=== PATIENT | male | born 1980 | race Caucasian/White ===

== ENCOUNTER 2017-12-03 07:12 | Emergency (ER) | payer BC, OTHER ==
[2017-12-03 07:30] VITALS: BP 133/95
--- NOTE | 2017-12-03 08:03 | UC ---
Skin Complaint HPI - HPI Summary HPI Summary: 37 yo male presents with changing mole to the left cheek. He tells me that all his life he has had a dark flat mole here, but over the last 2 weeks has been changing to a flesh color and is bleeding when touched. Also growing in size. Denies fever, chills, or prolonged sun exposure/tanning. No personal hx or fam hx of melanoma - History of Current Complaint Chief Complaint: UCSkin Time Seen by Provider: 12/03/17 08:03 Stated Complaint: MOLE ON FACE Hx Obtained From: Patient Onset/Duration: Gradual Onset Current Severity: None Pain Intensity: 0 - Allergy/Home Medications Allergies/Adverse Reactions: Allergies Allergy/AdvReac Type Severity Reaction Status Date / Time No Known Allergies Allergy Verified 12/03/17 07:30 Home Medications: Home Medications Aspirin TAB* [Aspirin 325 MG TAB*] 325 mg PO DAILY PRN 12/03/17 [History Confirmed 12/03/17] Review of Systems Constitutional: Negative Skin: Other - changing mole ENT: Negative Respiratory: Negative Cardiovascular: Negative Gastrointestinal: Negative Neurovascular: Negative Neurological: Negative Psychological: Negative All Other Systems Reviewed And Are Negative: Yes PMH/Surg Hx/FS Hx/Imm Hx - Additional Past Medical History Additional PMH: None Previously Healthy: Yes Other History Of: Negative For: HIV, Hepatitis B, Hepatitis C - Surgical History Surgical History: None Surgery Procedure, Year, and Place: DENIES - Family History Known Family History: Negative: Renal Disease, Blood Disorder - Social History Occupation: Employed Full-time Lives: With Family Alcohol Use: Occasionally Substance Use Type: None Smoking Status (MU): Former Smoker Have You Smoked in the Last Year: Yes When Did the Patient Quit Smoking/Using Tobacco: 2014 - Immunization History Most Recent Influenza Vaccination: never Most Recent Tetanus Shot: UTD Physical Exam - Summary Physical Exam Summary: GENERAL: NAD. WDWN. No pain distress. SKIN: Left cheek: 3mm flesh colored growth raised 2mm. Appears symmetric. NTTP. No streaking, bleeding, or drainage. NECK: Supple. Nontender. No lymphadenopathy. CHEST: No accessory muscle use. Breathing comfortably and in no distress. CV: RRR. Without m/r/g. NEURO: Alert. CN II-XII grossly intact. PSYCH: Age appropriate behavior. Triage Information Reviewed: Yes Vital Signs: Initial Vital Signs Temp 97.3 F 05/21/18 07:26 Pulse 70 12/03/17 07:26 Resp 16 12/03/17 07:26 BP 133/95 12/03/17 07:26 Pulse Ox 96 12/03/17 07:26 Course/Dx - Course Course Of Treatment: Changing mole - refer to derm for further eval - Diagnoses Provider Diagnoses: Changing mole Discharge - Sign-Out/Discharge Documenting (check all that apply): Discharge/Admit/Transfer - Discharge Plan Condition: Stable Disposition: HOME Patient Education Materials: Atypical Mole (ED) Referrals: No Primary Care Phys,NOPCP [Primary Care Provider] - Arminda Aguiar MD [Medical Doctor] - As Soon As Possible Additional Instructions: If you develop a fever, shortness of breath, chest pain, new or worsening symptoms - please call your PCP or go to the ED. Your blood pressure was high at todays visit. Please see your primary provider within 4 weeks for recheck and re-evaluation. 1) Please schedule a follow up appointment with dermatology as soon as possible - Billing Disposition and Condition Condition: STABLE Disposition: HOME
== END 2017-12-03 08:20 | disposition home or self-care (01) ==
LOC: UCEAST 07:12
DX: D22.39 Melanocytic nevi of other parts of face (principal); Z87.891 Personal history of nicotine dependence
CPT/HCPCS: 99211; G0463

== ENCOUNTER 2018-09-17 14:10 | Emergency (ER) | payer BC ==
[2018-09-17 14:18] VITALS: BP 145/97
--- NOTE | 2018-09-17 14:34 | ED ---
Abdominal Pain/Male - HPI Summary HPI Summary: 38 yr old male with the complaint of epigastric pain, mostly sub xiphoid area and also some RUQ pain. Onset while standing in line to get on a plane today, and he also had dizziness, and diaphoresis. He denies SOB, palpitations. He felt ill enough not to get on the airplane and he came here for further evaluation. He has no other complaints. - History of Current Complaint Chief Complaint: UCAbdominalPain Stated Complaint: ABD PAIN Time Seen by Provider: 09/17/18 14:20 Pain Intensity: 4 - Allergies/Home Medications Allergies/Adverse Reactions: Allergies Allergy/AdvReac Type Severity Reaction Status Date / Time No Known Allergies Allergy Verified 09/17/18 14:18 Home Medications: Home Medications NK [No Home Medications Reported] 09/17/18 [History Confirmed 09/17/18] PMH/Surg Hx/FS Hx/Imm Hx Endocrine/Hematology History: Denies: Hx Diabetes, Hx Thyroid Disease Cardiovascular History: Denies: Hx Congestive Heart Failure, Hx Deep Vein Thrombosis, Hx Hypertension , Hx Myocardial Infarction, Hx Pacemaker/ICD Respiratory History: Denies: Hx Asthma, Hx Chronic Obstructive Pulmonary Disease (COPD), Hx Lung Cancer, Hx Pneumonia, Hx Pulmonary Embolism GI History: Denies: Hx Gall Bladder Disease, Hx Gastrointestinal Bleed, Hx Ulcer, Hx Urosepsis History: Denies: Hx Kidney Stones, Hx Renal Disease Sensory History: Denies: Hx Hearing Aid Neurological History: Denies: Hx Dementia, Hx Migraine, Hx Seizures, Hx Transient Ischemic Attacks (TIA) Psychiatric History: Reports: Hx Anxiety Denies: Hx Panic Disorder - Surgical History Surgery Procedure, Year, and Place: DENIES Infectious Disease History: No Infectious Disease History: Denies: Hx Clostridium Difficile, Hx Hepatitis, Hx Human Immunodeficiency Virus (HIV), Hx of Known/Suspected MRSA, Hx Shingles, Hx Tuberculosis, Hx Known/ Suspected VRE, Hx Known/Suspected VRSA, History Other Infectious Disease, Traveled Outside the [place] in Last 30 Days - Family History Known Family History: Positive: None Negative: Renal Disease, Blood Disorder Family History: NON CONTRIBUTORY - Social History Occupation: Employed Full-time Alcohol Use: Occasionally Substance Use Type: Reports: None Smoking Status (MU): Former Smoker Have You Smoked in the Last Year: Yes Review of Systems Constitutional: Negative Positive: Abdominal Pain All Other Systems Reviewed And Are Negative: Yes Physical Exam Triage Information Reviewed: Yes Vital Signs On Initial Exam: Initial Vitals Temp Pulse Resp BP Pulse Ox 98 F 83 18 145/97 100 09/17/18 14:15 09/17/18 14:15 09/17/18 14:15 09/17/18 14:15 09/17/18 14:15 Vital Signs Reviewed: Yes Appearance: Positive: Well-Appearing, No Pain Distress Skin: Positive: Warm, Skin Color Reflects Adequate Perfusion Head/Face: Positive: Normal Head/Face Inspection Eyes: Positive: EOMI, TAMIKA ENT: Positive: Normal ENT inspection Neck: Positive: Supple, Nontender Respiratory/Lung Sounds: Positive: Clear to Auscultation, Breath Sounds Present Cardiovascular: Positive: RRR. Negative: Murmur Abdomen Description: Positive: Nontender Musculoskeletal: Positive: Strength/ROM Intact Neurological: Positive: Sensory/Motor Intact, Alert, Oriented to Person Place, Time, CN Intact II-III, Speech Normal Psychiatric: Positive: Normal - [place] Coma Scale Best Eye Response: 4 - Spontaneous Best Motor Response: 6 - Obeys Commands Best Verbal Response: 5 - Oriented Coma Scale Total: 15 Diagnostics - Vital Signs Vital Signs Temp Pulse Resp BP Pulse Ox 09/17/18 14:15 98 F 83 18 145/97 100 - Laboratory Lab Statement: Any lab studies that have been ordered have been reviewed, and results considered in the medical decision making process. - EKG 09/17/18 Cardiac Rate: NL EKG Rhythm: Sinus Rhythm ST Segment: Normal Ectopy: None - no stemi Abdominal Pain Male Course/Dx - Course Course Of Treatment: 38 yr old with high epigastric pain, dizziness and light headedness. Signed out AMA. Advised to go by ambulance to ER for further work up. Declined ambulance. He states his girlfriend is driving him to the ER. - Diagnoses Provider Diagnoses: Epigastric abdominal pain, Elevated blood pressure reading Discharge - Sign-Out/Discharge Documenting (check all that apply): Patient Departure All imaging exams completed and their final reports reviewed: No Studies - Discharge Plan Condition: Good Disposition: AGAINST MEDICAL ADVICE Referrals: No Primary Care Phys,NOPCP [Primary Care Provider] - - Billing Disposition and Condition Condition: GOOD Disposition: Against Medical Advice
== END 2018-09-17 14:40 | disposition left against medical advice (07) ==
LOC: UCEAST 14:10
DX: R10.13 Epigastric pain (principal); Z87.891 Personal history of nicotine dependence; R30.0 Dysuria
CPT/HCPCS: 93005; 99212; G0463

== ENCOUNTER 2018-09-17 15:09 | Emergency (ER) | payer BC ==
[2018-09-17] MEDS ORDERED: Famotidine TAB* 20 MG PO ONE (15:42)
[2018-09-17] MEDS ORDERED: Al Hydrox/Mg Hydrox/Simet LIQ* 30 ML UDC PO ONE (15:42)
[2018-09-17 15:57] LABS: ABS Basophils 0 10^3/ul (0-0.2); ABS Eosinophils 0.2 10^3/ul (0-0.6); ABS Lymphocytes 1.9 10^3/ul (1.0-4.8); ABS Monocytes 0.8 10^3/ul (0-0.8); ABS Neutrophils 4.2 10^3/ul (1.5-7.7); ABS Nucleated RBC 0 10^3/ul; Eosinophil % 2.2 %; Hematocrit 47 % (42-52); Hemoglobin 16.2 g/dl (14.0-18.0); Lymphocyte % 26.7 %; Mean Corpuscular HGB Conc 35 g/dl (31-36); Mean Corpuscular Hemoglobin 31 pg (27-31); Mean Corpuscular Volume 90 fL (80-94); Mean Platelet Volume 7.8 fL (7.4-10.4); Nucleated Red Blood Cells % 0.1; Platelet Count 243 10^3/ul (150-450); Red Blood Count 5.22 10^6/ul (4.00-5.40); Red Cell Distribution Width 13 % (10.5-15); White Blood Count 7.1 10^3/ul (3.5-10.8)
[2018-09-17 16:20] LABS: Albumin 4.8 g/dL (3.2-5.2); Albumin/Globulin Ratio 1.6 (1-3); BUN/Creatinine Ratio 14.2 (8-20); Calcium 9.9 mg/dL (8.6-10.3); EGFR African American 82.4 (>60); EGFR Non-African American 68.1 (>60); Magnesium 2.1 mg/dL (1.9-2.7); Potassium 4.6 mmol/L (3.5-5.0); Total Bilirubin 0.9 mg/dL (0.2-1.0); Total Protein 7.8 g/dL (6.4-8.9)
[2018-09-17 16:39] VITALS: BP 132/87
--- NOTE | 2018-09-18 07:31 | ED ---
HPI Chest Pain - HPI Summary HPI Summary: patient is a 38-year-old male who presents to the ED with epigastric pain 2-3 days. Patient denies SOB. He was seen at urgent care who sent him here for further evaluation. He arrives appearing anxious overcoming to the ED. He has never had cardiac pathologies in the past. Denies any family history of such. He takes no medications. Patient is a some day smoker, however quit as an every day smoker several years ago. Endorses occasional alcohol use. He endorses symptoms of epigastric tenderness which is nonradiating. Not worse or better with positioning. He continues to eat and drink okay. Symptoms are not worse with exertion or better with rest. He has not tried anything over-the- counter for relief. He's never been diagnosed with GERD. - History of Current Complaint Chief Complaint: EDChestPainROMI Time Seen by Provider: 09/17/18 15:35 Hx Obtained From: Patient Onset/Duration: Started Days Ago Timing: Intermittent Initial Severity: Moderate Current Severity: None Pain Intensity: 1 Pain Scale Used: 0-10 Numeric Chest Pain Location: Mid Sternal Chest Pain Radiates: No Character: Dull/Aching Aggravating Factor(s): Nothing Alleviating Factor(s): Nothing Associated Signs and Symptoms: Positive: Negative - Risk Factors Pulmonary Embolism Risk Factors: Negative TAD Risk Factors: Negative - Allergy/Home Medications Allergies/Adverse Reactions: Allergies Allergy/AdvReac Type Severity Reaction Status Date / Time No Known Allergies Allergy Verified 09/17/18 14:18 PMH/Surg Hx/FS Hx/Imm Hx Previously Healthy: Yes Endocrine/Hematology History: Denies: Hx Diabetes, Hx Thyroid Disease Cardiovascular History: Denies: Hx Congestive Heart Failure, Hx Deep Vein Thrombosis, Hx Hypertension , Hx Myocardial Infarction, Hx Pacemaker/ICD Respiratory History: Denies: Hx Asthma, Hx Chronic Obstructive Pulmonary Disease (COPD), Hx Lung Cancer, Hx Pneumonia, Hx Pulmonary Embolism GI History: Denies: Hx Gall Bladder Disease, Hx Gastrointestinal Bleed, Hx Ulcer, Hx Urosepsis History: Denies: Hx Kidney Stones, Hx Renal Disease Sensory History: Denies: Hx Hearing Aid Neurological History: Denies: Hx Dementia, Hx Migraine, Hx Seizures, Hx Transient Ischemic Attacks (TIA) Psychiatric History: Reports: Hx Anxiety Denies: Hx Panic Disorder - Surgical History Surgery Procedure, Year, and Place: DENIES - Immunization History Hx Pertussis Vaccination: No Immunizations Up to Date: Yes Infectious Disease History: No Infectious Disease History: Denies: Hx Clostridium Difficile, Hx Hepatitis, Hx Human Immunodeficiency Virus (HIV), Hx of Known/Suspected MRSA, Hx Shingles, Hx Tuberculosis, Hx Known/ Suspected VRE, Hx Known/Suspected VRSA, History Other Infectious Disease, Traveled Outside the [place] in Last 30 Days - Family History Known Family History: Positive: None Negative: Renal Disease, Blood Disorder Family History: NON CONTRIBUTORY - Social History Occupation: Employed Full-time Lives: With Family Alcohol Use: Occasionally Hx Substance Use: No Substance Use Type: Reports: None Smoking Status (MU): Former Smoker Have You Smoked in the Last Year: Yes Review of Systems Negative: Fever, Chills, Fatigue, Skin Diaphoresis Negative: Blurred Vision Negative: Dental Pain, Sore Throat Positive: Chest Pain Negative: Shortness Of Breath, Cough Genitourinary: Negative Positive: no symptoms reported, see HPI Skin: Negative Neurological: Negative All Other Systems Reviewed And Are Negative: Yes Physical Exam Triage Information Reviewed: Yes Vital Signs On Initial Exam: Initial Vitals Temp Pulse Resp BP Pulse Ox 97.4 F 71 18 158/103 98 09/17/18 15:14 09/17/18 15:14 09/17/18 15:14 09/17/18 15:14 09/17/18 15:14 Vital Signs Reviewed: Yes Appearance: Positive: Well-Appearing, Well-Nourished Skin: Positive: Warm, Skin Color Reflects Adequate Perfusion Head/Face: Positive: Normal Head/Face Inspection Eyes: Positive: EOMI, TAMIKA, Conjunctiva Clear Neck: Positive: Supple, No Lymphadenopathy Respiratory/Lung Sounds: Positive: Clear to Auscultation, Breath Sounds Present Cardiovascular: Positive: RRR, Pulses are Symmetrical in both Upper and Lower Extremities, S1, S2. Negative: Leg Edema Left, Leg Edema Right Musculoskeletal: Positive: Normal, Strength/ROM Intact Neurological: Positive: Speech Normal Psychiatric: Positive: Anxious AVPU Assessment: Alert Diagnostics - Vital Signs Vital Signs Temp Pulse Resp BP Pulse Ox 09/17/18 16:42 98.2 F 70 18 132/87 95 09/17/18 16:09 70 18 132/87 95 09/17/18 16:01 69 18 98 09/17/18 15:42 9 09/17/18 15:39 162/103 09/17/18 15:14 97.4 F 71 18 158/103 98 - Laboratory Lab Results: Lab Results 09/17/18 09/17/18 09/17/18 Range/Units 15:50 15:50 15:50 WBC 7.1 (3.5-10.8) 10^3/ul RBC 5.22 (4.00-5.40) 10^6/ul Hgb 16.2 (14.0-18.0) g/dl Hct 47 (42-52) % MCV 90 (80-94) fL MCH 31 (27-31) pg MCHC 35 (31-36) g/dl RDW 13 (10.5-15) % Plt Count 243 (150-450) 10^3/ul MPV 7.8 (7.4-10.4) fL Neut % (Auto) 58.9 % Lymph % (Auto) 26.7 % [place] % (Auto) 11.6 % Eos % (Auto) 2.2 % Baso % (Auto) 0.6 % Absolute Neuts (auto) 4.2 (1.5-7.7) 10^3/ul Absolute Lymphs (auto) 1.9 (1.0-4.8) 10^3/ul Absolute Monos (auto) 0.8 (0-0.8) 10^3/ul Absolute Eos (auto) 0.2 (0-0.6) 10^3/ul Absolute Basos (auto) 0 (0-0.2) 10^3/ul Absolute Nucleated RBC 0 10^3/ul Nucleated RBC % 0.1 Sodium 138 (135-145) mmol/L Potassium 4.6 (3.5-5.0) mmol/L Chloride 100 L (101-111) mmol/L Carbon Dioxide 28 (22-32) mmol/L Anion Gap 10 (2-11) mmol/L BUN 17 (6-24) mg/dL Creatinine 1.20 H (0.67-1.17) mg/dL Est GFR ( Amer) 82.4 (>60) Est GFR (Non-Af Amer) 68.1 (>60) BUN/Creatinine Ratio 14.2 (8-20) Glucose 107 H (70-100) mg/dL Lactic Acid 2.2 H* (0.5-2.0) mmol/L Calcium 9.9 (8.6-10.3) mg/dL Magnesium 2.1 (1.9-2.7) mg/dL Total Bilirubin 0.90 (0.2-1.0) mg/dL AST 28 (13-39) U/L ALT 62 H (7-52) U/L Alkaline Phosphatase 81 (34-104) U/L Troponin I 0.00 (<0.04) ng/mL Total Protein 7.8 (6.4-8.9) g/dL Albumin 4.8 (3.2-5.2) g/dL Globulin 3.0 (2-4) g/dL Albumin/Globulin Ratio 1.6 (1-3) Result Diagrams: 09/17/18 15:50 09/17/18 15:50 Lab Statement: Any lab studies that have been ordered have been reviewed, and results considered in the medical decision making process. Chest Pain Course/Dx - Course Course Of Treatment: During the course of treatment, the patient is worked up for chest pain. He endorses epigastric chest pain which is nonradiating. Denies any abdominal pain otherwise. On physical examination, lungs CTA, RRR. Vital signs are stable. Patient appears well and nondiaphoretic. No shortness of breath is noted. On physical examination, palpation in all 4 quadrants without tenderness. He is given famotidine and Maalox in the ED with good improvement. EKG shows normal sinus rhythm. Lactic 2.2. Troponin 0.00. Discussed treatment options with patient. I've given him a referral to [facility] for further follow-up. He'll be diagnosed with atypical chest pain. Unsure if this is gastritis versus other atypical chest pain. As troponin 0.00, he has no history or family history patient is otherwise low risk for ACS, I do not believe he needs to be admitted at this time. He will follow-up with a new PCP. - Chest Pain Differential Diagnosis/HQI/PQRI: ACS, Chest Wall - Diagnoses Provider Diagnoses: Atypical chest pain Discharge - Sign-Out/Discharge Documenting (check all that apply): Patient Departure Patient Received Moderate/Deep Sedation with Procedure: No - Discharge Plan Condition: Stable Disposition: HOME Patient Education Materials: Chest Pain (ED) Referrals: [facility] [Outside] No Primary Care Phys,NOPCP [Primary Care Provider] - Additional Instructions: Please follow up with [facility]CP [facility] If symptoms worsen - return to the ED - Billing Disposition and Condition Condition: STABLE Disposition: Home
== END 2018-09-17 16:42 | disposition home or self-care (01) ==
LOC: ED 15:09
DX: R07.89 Other chest pain (principal); R10.13 Epigastric pain; F41.9 Anxiety disorder, unspecified; Z72.0 Tobacco use
CPT/HCPCS: 36415; 71046; 80053; 83605; 83735; 84484; 85025; 93005; 99283; A9270-GY

== ENCOUNTER 2019-06-16 21:00 | Emergency (ER) | payer BC, OTHER ==
[2019-06-16 21:14] VITALS: BP 146/92
--- NOTE | 2019-06-16 22:01 | UC ---
Elbow Pain - HPI Summary HPI Summary: 38 year old male presents with onset of progressively worsening redness, swelling, and pain to his posterior left elbow since yesterday. No known injury. States pain is a constant throbbing that increases with full extension of the elbow. Denies fever, chills, lesions, decreased ROM, numbness or tingling. - History of Current Complaint Chief Complaint: UCUpperExtremity Stated Complaint: ELBOW PAIN Time Seen by Provider: 06/16/19 21:37 Hx Obtained From: Patient Pain Intensity: 7 - Allergies/Home Medications Allergies/Adverse Reactions: Allergies Allergy/AdvReac Type Severity Reaction Status Date / Time No Known Allergies Allergy Verified 06/16/19 21:14 Home Medications: Home Medications Ibuprofen TAB* [Motrin TAB* 400 MG] 400 mg PO Q6H PRN 06/16/19 [History Confirmed 06/16/19] PMH/Surg Hx/FS Hx/Imm Hx Previously Healthy: Yes - Denies significant PMH Other History Of: Negative For: HIV, Hepatitis B, Hepatitis C - Surgical History Surgical History: None Surgery Procedure, Year, and Place: DENIES - Family History Known Family History: Positive: Non-Contributory Family History: NON CONTRIBUTORY - Social History Occupation: Employed Full-time Lives: Alone Alcohol Use: Weekly Substance Use Type: None Smoking Status (MU): Former Smoker Have You Smoked in the Last Year: Yes When Did the Patient Quit Smoking/Using Tobacco: 2014 - Immunization History Most Recent Influenza Vaccination: never Most Recent Tetanus Shot: UTD Review of Systems All Other Systems Reviewed And Are Negative: Yes Constitutional: Negative: Fever, Chills Skin: Negative: Rash, Other - Lesions Respiratory: Positive: Negative Cardiovascular: Positive: Negative Gastrointestinal: Positive: Negative Genitourinary: Positive: Negative Motor: Negative: Weakness Neurovascular: Negative: Decreased Sensation Musculoskeletal: Positive: Other: - See HPI Neurological: Positive: Negative Is Patient Immunocompromised?: No Physical Exam - Summary Physical Exam Summary: GENERAL APPEARANCE: Well developed, well nourished, alert and cooperative, and appears to be in no acute distress. CARDIAC: Normal S1 and S2. No S3, S4 or murmurs. Rhythm is regular. There is no peripheral edema, cyanosis or pallor. Extremities are warm and well perfused. Capillary refill is less than 2 seconds. Peripheral pulses intact. LUNGS: Clear to auscultation without rales, rhonchi, wheezing or diminished breath sounds. ABDOMEN: Positive bowel sounds. Soft, nondistended, nontender. No guarding or rebound. No masses or hepatosplenomegally. MUSKULOSKELETAL: Normal muscular development. Normal gait. EXTREMITIES: Tenderness, erythema and edema to the posterior left elbow over the olecranon bursa with increased warmth. No lesions. Circulation and sensation intact. SKIN: Skin normal color, texture and turgor with no lesions or eruptions. Triage Information Reviewed: Yes Vital Signs: Initial Vital Signs Temp 98.3 F 06/16/19 21: Pulse 96 06/16/19 21: Resp 16 06/16/19 21: BP 146/92 06/16/19: Pulse Ox 99 06/16/19: Vital Signs Reviewed: Yes Elbow Pain Course/Dx - Course Course Of Treatment: 38 year old male presents with onset of progressively worsening redness, swelling, and pain to his posterior left elbow since yesterday. No known injury. States pain is a constant throbbing that increases with full extension of the elbow. Denies fever, chills, lesions, decreased ROM, numbness or tingling. Afebrile. Hypertensive otherwise VSS. Patient had tenderness, erythema and edema to the posterior left elbow over the olecranon bursa with increased warmth, no lesions, with circulation and sensation intact. Discussed with patient that based on his exam he clinically has an olecranon bursitis that is unlikely to be of infectious origin without injury or fever. Recommending conservative treatment including NSAIDs and RICE. He was placed in an ROMI wrap by the RN. He is to follow up with orthopedic surgery in 5-7 days if symptoms do not improve. Anticipatory guidance and warning symptoms reviewed with patient. Verbalizes understanding and agrees with POC. - Differential Dx/Diagnosis Differential Diagnosis/HQI/PQRI: Bursitis, Cellulitis, Joint Effusion, Sprain, Tendonitis Provider Diagnosis: Olecranon bursitis of left elbow Discharge ED - Sign-Out/Discharge Documenting (check all that apply): Patient Departure All imaging exams completed and their final reports reviewed: No Studies - Discharge Plan Condition: Stable Disposition: HOME Patient Education Materials: Elbow Bursitis (ED) Referrals: [facility] [Outside] Michael Garcia MD [Medical Doctor] - 5 Days (If no improvement. Call for appointment.) No Primary Care Phys,NOPCP [Primary Care Provider] - Additional Instructions: You have a condition called olecranon bursititis which is inflammation of the fluid sac of the elbow. Rest the elbow as much as possible. Apply ice to the affected area for 15-20 minutes at least 4 times a day to help with the pain and swelling. Use the ROMI wrap that was applied to help reduce swelling. Take ibuprofen (Advil, Motrin) 600 mg (3 tabs) every 8 hours or naproxen (Aleve ) 440 mg (2 tabs) every 12 hours for the next 5 days then as needed for pain. Follow up with your orthopedic surgery in 5-7 days if symptoms do not improve. Seek immediate medical attention if you develop fever greater than 100.5 F, have severe pain not managed with pain medication, you lose function of the arm/ elbow, develop numbness or tingling in the arm, hand, or legs, or have any worsening of symptoms. - Billing Disposition and Condition Condition: STABLE Disposition: Home
== END 2019-06-16 22:20 | disposition home or self-care (01) ==
LOC: UCEAST 21:00
DX: M70.22 Olecranon bursitis, left elbow (principal); Z87.891 Personal history of nicotine dependence
CPT/HCPCS: 99212; G0463

== ENCOUNTER 2019-09-06 16:22 | Emergency (ER) | payer BC ==
--- NOTE | 2019-09-06 16:58 | UC ---
Throat Pain/Nasal Jorge HPI - HPI Summary HPI Summary: Laryngitis, cough headaches for about 1 week--patient very frustrated this is not better - History of Current Complaint Chief Complaint: UCRespiratory Stated Complaint: SORE THROAT Time Seen by Provider: 09/06/19 16:24 Hx Obtained From: Patient Onset/Duration: Gradual Onset, Lasting Days - 7, Still Present Pain Intensity: 6 Pain Scale Used: 0-10 Numeric Cough: Sputum Appears - green Associated Signs & Symptoms: Positive: Hoarseness - Allergies/Home Medications Allergies/Adverse Reactions: Allergies Allergy/AdvReac Type Severity Reaction Status Date / Time No Known Allergies Allergy Verified 09/06/19 16:34 Home Medications: Home Medications Aspirin TAB* [Aspirin 325 MG TAB*] 650 mg PO Q6HR 09/06/19 [History Confirmed ] Azithromycin TAB* [Zithromax TAB (Z-ROSHAN) 250 mg #6 tabs] 2 tab PO .TODAY, THEN 1 DAILY #1 roshan 09/06/19 [Rx] PMH/Surg Hx/FS Hx/Imm Hx Previously Healthy: Yes Other History Of: Negative For: HIV, Hepatitis B, Hepatitis C - Surgical History Surgical History: None Surgery Procedure, Year, and Place: DENIES - Family History Known Family History: Positive: Non-Contributory Family History: NON CONTRIBUTORY - Social History Occupation: Employed Full-time Lives: With Family Alcohol Use: Weekly Alcohol Amount: weekends Substance Use Type: None Smoking Status (MU): Former Smoker Have You Smoked in the Last Year: Yes When Did the Patient Quit Smoking/Using Tobacco: 2014 - Immunization History Most Recent Influenza Vaccination: never Most Recent Tetanus Shot: UTD Review of Systems All Other Systems Reviewed And Are Negative: Yes Constitutional: Positive: Fatigue Skin: Positive: Negative Eyes: Positive: Negative ENT: Positive: Sore Throat Respiratory: Positive: Cough Cardiovascular: Positive: Negative Gastrointestinal: Positive: Negative Genitourinary: Positive: Negative Motor: Positive: Negative Neurovascular: Positive: Negative Musculoskeletal: Positive: Negative Neurological/Mental Status: Positive: Negative Psychological: Positive: Negative Is Patient Immunocompromised?: No Physical Exam Triage Information Reviewed: Yes Appearance: Well-Appearing, No Pain Distress, Well-Nourished Vital Signs: Initial Vital Signs Temp 98.1 F 09/06/19 16:29 Pulse 88 09/06/19 16:29 Resp 16 09/06/19 16:29 BP 145/101 09/06/19 16:29 Pulse Ox 99 09/06/19 16:29 Vital Signs Reviewed: Yes Eye Exam: Normal Eyes: Positive: Conjunctiva Clear ENT Exam: Normal ENT: Positive: Normal ENT inspection, Hearing grossly normal, Pharynx normal, TMs normal, Hoarse voice, Uvula midline. Negative: Nasal congestion, Nasal drainage, Tonsillar swelling, Tonsillar exudate, Trismus, Muffled voice, Dental tenderness, Sinus tenderness Dental Exam: Normal Neck exam: Normal Neck: Positive: Supple, Nontender, No Lymphadenopathy Respiratory Exam: Normal Respiratory: Positive: Chest non-tender, Lungs clear, Normal breath sounds, No respiratory distress, No accessory muscle use Cardiovascular Exam: Normal Cardiovascular: Positive: RRR, No Murmur, Pulses Normal, Brisk Capillary Refill Musculoskeletal Exam: Normal Musculoskeletal: Positive: Strength Intact, ROM Intact, No Edema Neurological Exam: Normal Neurological: Positive: Alert, Muscle Tone Normal Psychological Exam: Normal Skin Exam: Normal Diagnostics - Laboratory Lab Results: influenza a/b -, strep - Throat Pain/Nasal Course/Dx - Course Course Of Treatment: patient understands (but not really accepting) that this is a viral illness--- encouraged patient to treat symptomatically will rx z-pack if fails to improve- --referral to pcp to follow elevated blood pressure - Differential Dx/Diagnosis Provider Diagnosis: Hypertension, Bronchitis, Laryngitis Discharge ED - Sign-Out/Discharge Documenting (check all that apply): Patient Departure All imaging exams completed and their final reports reviewed: No Studies - Discharge Plan Condition: Stable Disposition: HOME Prescriptions: Azithromycin TAB* [Zithromax TAB (Z-ROSHAN) 250 mg #6 tabs] 2 tab PO .TODAY, THEN 1 DAILY #1 roshan Patient Education Materials: Laryngitis (ED), Hypertension (ED), Cold Symptoms (ED), Acute Cough (ED) Referrals: [facility] [Outside] - 2 Weeks - Billing Disposition and Condition Condition: STABLE Disposition: Home
[2019-09-06 16:59] VITALS: BP 140/98
[2019-09-06 17:03] LABS: Influenza A Molecular Negative (Negative); Influenza B Molecular Negative (Negative)
== END 2019-09-06 17:22 | disposition home or self-care (01) ==
LOC: UCEAST 16:22
DX: J40 Bronchitis, not specified as acute or chronic (principal); I10 Essential (primary) hypertension; J04.0 Acute laryngitis; Z79.82 Long term (current) use of aspirin; Z87.891 Personal history of nicotine dependence
CPT/HCPCS: 87651; 99212; G0463